=== PATIENT | female | born 1950 | race Hispanic/Latino ===

== ENCOUNTER → 2017-08-09 | Outpatient (CLI) | payer MEDICARE | END | disposition home or self-care (01) | LOC: RAH 11:57 | PROVIDERS: ATTEND Family Medicine | DX: Z01.818 Encounter for other preprocedural examination (principal) | CPT/HCPCS: 71045 ==

== ENCOUNTER 2023-08-11 23:35 | Emergency (ER) | payer MEDICARE ==
[~2023-08-11] VITALS: Ht 157.5 cm; Wt 73.0 kg
[2023-08-11 23:44] VITALS: BP 148/75; PULSE 78; RESP 18; O2SAT 97
[2023-08-12 00:06] LABS: BILIRUBIN,URINE NEGATIVE (NEGATIVE); GLUCOSE, URINE (UA) 100 mg/dL (NEGATIVE); KETONES,URINE NEGATIVE (NEGATIVE); LEUKOCYTE ESTERASE ,URINE LARGE Leu/uL (NEGATIVE); NITRATE,URINE POSITIVE (NEGATIVE); OCCULT BLOOD,URINE LARGE (NEGATIVE); PROTEIN,URINE 100 mg/dL (NEGATIVE)
[2023-08-12 00:08] LABS: ADD UA MICROSCOPIC YES; APPEARANCE,URINE TURBID (CLEAR); COLOR,URINE Amber (YELLOW)
[2023-08-12] MEDS ORDERED: AMOX1TAB16 PO (00:15)
[2023-08-12] MEDS ORDERED: PHEN-847 PO (00:15)
[2023-08-12 00:19] LABS: RBC,URINE TNTC /HPF (0-1)
[2023-08-12 00:20] LABS: BACTERIA,URINE Rare /HPF (None Seen); WBC,URINE 51-100 /HPF (0-1)
[2023-08-12 00:21] LABS: NON-SQUAMOUS EPITHELIAL CELL Few /HPF (0-2)
[2023-08-12] MEDS: PHENAZOPYRIDINE HCL 200 MG TABLET PO ONE (00:21)
[2023-08-12] MEDS: ACETAMINOPHEN 500 MG TABLET PO ONE (00:22)
[2023-08-12] MEDS: SULFAMETHOX-TMP DS 800/160 TAB ONE (00:25)
[2023-08-12] MEDS: AMOX/CLAV 875/125MG TAB PO ONE (00:26)
== END 2023-08-12 00:29 | disposition home or self-care (01) ==
LOC: EDH 23:35
DX: N30.01 Acute cystitis with hematuria (principal); E11.9 Type 2 diabetes mellitus without complications; I10 Essential (primary) hypertension; E03.9 Hypothyroidism, unspecified
CPT/HCPCS: 81001; 87077; 87088; 87186